=== PATIENT | female | born 1995 ===

== ENCOUNTER 2022-07-29 06:26 | Inpatient (IN) | payer MEDICAID ==
[2022-07-29] MEDS ORDERED: Sodium Chloride 0.9% 2.5 ML Syringe FLUSH PRN (08:44)
[2022-07-29] MEDS ORDERED: Tranexamic Acid 1,000 MG in Sodium Chloride 0.9% 100 ML IV PRN (08:44)
[2022-07-29] MEDS ORDERED: Misoprostol 200 MCG Tab PO PRN (08:44)
[2022-07-29] MEDS ORDERED: Sodium Chloride 0.9% 20 ML SDV IV PRN (08:44)
[2022-07-29] MEDS ORDERED: Water For Irrigation,Sterile 1,000 ML Container IRR PRN (08:44)
[2022-07-29] MEDS ORDERED: Carboprost Tromethamine 250 MCG/1 ML Amp IM PRN (08:44)
[2022-07-29] MEDS ORDERED: Methylergonovine 0.2 MG/1 ML Amp IM PRN (08:44)
[2022-07-29] MEDS ORDERED: Sodium Chloride 0.9% 10 ML Syringe FLUSH PRN (08:44)
[2022-07-29] MEDS ORDERED: Lidocaine 1% 50 ML MDV INJECT PRN (08:44)
[2022-07-29] MEDS ORDERED: Butorphanol 1 MG/ML SDV IVPUSH PRN (08:44)
[2022-07-29] MEDS ORDERED: Oxytocin/0.9 % Sodium Chloride 30 UNIT/500 ML BAG IV SCH ×2 (08:45→15:00)
[2022-07-29] MEDS: Lactated Ringers 1,000 ML IV SCH ×2 (15:16→19:11)
[2022-07-29] MEDS ORDERED: Ropivacaine/PF 400 MG/200 ML PCA ONE (18:30)
[2022-07-29] MEDS ORDERED: Phenylephrine HCl In 0.9% NaCl 1 MG/10 ML Vial IVPUSH PRN (18:43)
[2022-07-29] MEDS ORDERED: ePHEDrine 50 MG/ML SDV IVPUSH PRN (18:43)
[2022-07-29] MEDS ORDERED: Ropivacaine HCl/PF 400 MG in Premix Bag 1 BAG EPIDUR SCH (18:45)
[2022-07-30] MEDS ORDERED: Witch Hazel Medicated Pads 40/Jar TOP PRN (01:08)
[2022-07-30] MEDS ORDERED: Ibuprofen 400 MG Tab PO PRN (01:08)
[2022-07-30] MEDS ORDERED: Acetaminophen 500 MG Tab PO PRN ×2 (01:08)
[2022-07-30] MEDS ORDERED: Lanolin 100% Cream 7 GM Tube TOP PRN (01:08)
[2022-07-30] MEDS ORDERED: Benzocaine/Menthol 20%-0.5% Spray 78 GM Cannister TOP PRN (01:08)
[2022-07-30] MEDS ORDERED: Docusate Sodium 100 MG Cap PO PRN (01:08)
[2022-07-30] MEDS ORDERED: Bisacodyl 10 MG Supp RECTAL PRN (01:08)
[2022-07-30] MEDS: Ibuprofen 800 MG Tab PO PRN ×2 (06:33→12:48)
[2022-07-30] MEDS: oxyCODONE 5 MG Tab PO PRN ×2 (06:34→18:04)
[2022-07-30] MEDS ORDERED: Sodium Ferric Gluconate Cmplex 125 MG in Sodium Chloride 0.9% 100 ML IV ONE (09:00)
[2022-07-31] MEDS: Ibuprofen 800 MG Tab PO PRN ×2 (02:10→09:23)
== END 2022-07-31 12:26 | disposition home or self-care (01) | DRG 807 ==
LOC: MW.OBCHECK 06:26 → MW.OB 06:27 → MW.OBCHECK 08:43 → MW.OB 08:44 → OBSVTOIN 07-30 00:50 → MW.OB 07-30 11:05
PROVIDERS: ADMIT Obstetrics & Gynecology; ATTEND Obstetrics & Gynecology
PROC: 10E0XZZ Delivery of Products of Conception, External Approach (ICD-10-PCS; principal; 2022-07-30)
PROC: 0HQ9XZZ Repair Perineum Skin, External Approach (ICD-10-PCS; 2022-07-30)
PROC: 3E0R3BZ Introduction of Anesthetic Agent into Spinal Canal, Percutaneous Approach (ICD-10-PCS; 2022-07-30)
PROC: 00HU33Z Insertion of Infusion Device into Spinal Canal, Percutaneous Approach (ICD-10-PCS; 2022-07-30)
DX: O99.02 Anemia complicating childbirth (principal); Z37.0 Single live birth; D64.9 Anemia, unspecified; O70.0 First degree perineal laceration during delivery; Z20.822 Contact with and (suspected) exposure to COVID-19; Z86.16 Personal history of COVID-19; Z3A.38 38 weeks gestation of pregnancy
CPT/HCPCS: 36415; 51702; 59025; 59409; 82803; 84112; 85014; 85018; 85027; 86592; 86850; 86900; 86901; A9270-GY; J0595; J2590; J2795; J2916; J3490; J7120; U0002

== ENCOUNTER 2023-02-09 17:35 | Emergency (ER) | payer MEDICAID ==
[2023-02-09] MEDS ORDERED: Dexamethasone 10 MG/ML SDV PO ONE (18:05)
[2023-02-09] MEDS ORDERED: Prochlorperazine 5 MG in Sodium Chloride 0.9% 50 ML IV ONE (18:05)
[2023-02-09] MEDS ORDERED: Ketorolac 30 MG/ML SDV IVPUSH ONE (18:05)
[2023-02-09] MEDS ORDERED: diphenhydrAMINE 50 MG/ML SDV IVPUSH ONE (18:05)
[2023-02-09] MEDS ORDERED: Lactated Ringers 1,000 ML IV SCH (18:15)
[2023-02-09 18:39] LABS: APPEARANCE,URINE SLT CLOUDY; BILIRUBIN,URINE NEGATIVE (NEGATIVE); COLOR,URINE YELLOW; GLUCOSE,URINE NEGATIVE (NEGATIVE); KETONES,URINE 15 mg/dL (NEGATIVE); LEUKOCYTE ESTERASE,URINE NEGATIVE (NEGATIVE); NITRITE,URINE NEGATIVE (NEGATIVE); OCCULT BLOOD,URINE NEGATIVE (NEGATIVE); PROTEIN,URINE TRACE mg/dL (NEGATIVE); UROBILINOGEN,URINE 0.2 EU/dL (<2.0)
[2023-02-09 18:48] LABS: BACTERIA,URINE MODERATE (NEGATIVE); EPITHELIAL CELLS,URINE MANY (NONE-FEW)
[2023-02-09 19:00] LABS: BASOPHILS PERCENT AUTO 0.1 % (0.0-1.5); EOSINOPHILS PERCENT AUTO 0.1 % (0.0-7.0); HEMATOCRIT 37.7 % (36.0-46.0); HEMOGLOBIN 12.1 g/dL (12.0-16.0); LYMPHOCYTES ABSOLUTE AUTO 1.3 K/uL (0.6-2.4); LYMPHOCYTES PERCENT AUTO 11.7 % (16.0-40.0); MEAN CORPUSCULAR HEMOGLOBIN 25.9 pg (27.0-32.0); MEAN CORPUSCULAR HGB CONC 32.1 g/dL (31.0-37.0); MEAN CORPUSCULAR VOLUME 80.6 fL (80.0-98.0); MONOCYTES ABSOLUTE AUTO 0.6 K/uL (0.0-0.8); MONOCYTES PERCENT AUTO 5.1 % (0.0-15.0); NEUTROPHILS ABSOLUTE AUTO 8.9 K/uL (1.4-5.7); NRBC ABSOLUTE 0 K/uL; PLATELET COUNT,PLT 320 K/uL (150-400); RED BLOOD CELL COUNT 4.68 M/uL (4.30-5.90); WHITE BLOOD CELL COUNT,WBC 10.74 K/uL (4.0-11.0)
[2023-02-09] MEDS ORDERED: Prochlorperazine 10 MG/2 ML SDV ONE (19:09)
[2023-02-09] MEDS ORDERED: Prochlorperazine 10 MG/2 ML SDV IVPUSH ONE (19:13)
[2023-02-09 19:27] LABS: A/G RATIO 0.9 (0.9-1.6); ALBUMIN 3.9 g/dL (3.4-5.0); BILIRUBIN TOTAL 0.6 mg/dL (0.2-1.0); CALCIUM 9.1 mg/dL (8.5-10.1); CARBON DIOXIDE,CO2 26.2 mmol/L (21.0-32.0); CREATININE 0.7 mg/dL (0.6-1.0); EST CRCL DRUG DOSING (CG) 109.59 mL/min; POTASSIUM,K 4.1 mmol/L (3.5-5.1); PROTEIN TOTAL,TP 8.4 g/dL (6.4-8.2)
[2023-02-09 19:46] LABS: CORONAVIRUS COVID-19 NAA NEGATIVE (NEGATIVE); INFLUENZA A NAA NEGATIVE (NEGATIVE); INFLUENZA B NAA NEGATIVE (NEGATIVE); RESPIRATORY SYNCYTIAL VIR NAA NEGATIVE (NEGATIVE)
== END 2023-02-09 20:57 | disposition home or self-care (01) ==
LOC: MW.ED 17:35
DX: O99.355 Diseases of the nervous system complicating the puerperium (principal); G43.909 Migraine, unspecified, not intractable, without status migrainosus; Z91.048 Other nonmedicinal substance allergy status; Z91.018 Allergy to other foods; Z86.16 Personal history of COVID-19; Z20.822 Contact with and (suspected) exposure to COVID-19
CPT/HCPCS: 0241U; 36415; 70450; 80053; 81001; 85025; 87651; 96361; 96374; 96375; 99284; J0780; J1200; J1885; J7120; J8540